=== PATIENT | female | born 1945 | race Caucasian/White ===

== ENCOUNTER 2016-11-09 17:32 | Inpatient (IN) | payer MEDICAID, OTHER ==
[~2016-11-09] VITALS: Ht 152.4 cm; Wt 83.0 kg
[~2016-11-09 17:32] MED LIST: AZIT250T89 PO; CEFD300C37 PO
[2016-11-09] MEDS ORDERED: SODIUM CHLORIDE FLUSH 10ML SYR IVF ONE (18:30)
[2016-11-09] MEDS ORDERED: SODIUM CHLORIDE 0.9% 1,000ML IVBOLUS ONE (18:30)
[2016-11-09] MEDS ORDERED: ONDANSETRON 2MG/ML, 2ML IVPush ONE (18:30)
[2016-11-09] MEDS ORDERED: ONDANSETRON 2MG/ML, 2ML ONE (18:42)
[2016-11-09 18:56] LABS: ASPARTATE AMINO TRANSFERASE 27 U/L (15-37); BLOOD UREA NITROGEN 14 mg/dL (7-18)
[2016-11-09] MEDS ORDERED: METO50TA82 PO (20:09)
[2016-11-09] MEDS ORDERED: CAPT25TA3 PO (20:09)
[2016-11-09] MEDS ORDERED: ACETAMINOPHEN 325 MG TABLET PO PRN (20:30)
[2016-11-09] MEDS ORDERED: AMPICILLIN/SULBACTAM 3 GM in SODIUM CHLORIDE 0.9% 100 ML IV ONE (20:30)
[2016-11-09] MEDS ORDERED: hydrALAzine 20 MG/ML, 1ML IVPush PRN (20:30)
[2016-11-09] MEDS ORDERED: ONDANSETRON 2MG/ML, 2ML IVPush PRN (20:30)
[2016-11-09] MEDS ORDERED: morphine SULFATE 10 MG/ML, 1ML IVPush PRN (20:30)
[2016-11-09 21:35] VITALS: BP 142/82
[2016-11-09] MEDS: SODIUM CHLORIDE 0.9% 1,000 ML IV SCH (21:45)
[2016-11-09] MEDS: METOPROLOL TARTRATE 25 MG TABLET PO SCH (21:46)
[2016-11-09] MEDS: CAPTOPRIL 25 MG TABLET PO SCH (21:46)
[2016-11-10] MEDS: AMPICILLIN/SULBACTAM 3 GM in SODIUM CHLORIDE 0.9% 100 ML IV SCH ×2 (03:07→11:08)
[2016-11-10 03:51] VITALS: BP 127/76
[2016-11-10] MEDS: SODIUM CHLORIDE 0.9% 1,000 ML IV SCH ×2 (05:31→13:45)
[2016-11-10] MEDS: METOPROLOL TARTRATE 25 MG TABLET PO SCH ×2 (05:41→17:31)
[2016-11-10 06:08] LABS: ASPARTATE AMINO TRANSFERASE 19 U/L (15-37); BLOOD UREA NITROGEN 12 mg/dL (7-18)
[2016-11-10 06:46] VITALS: BP 136/82
[2016-11-10] MEDS: CAPTOPRIL 25 MG TABLET PO SCH ×3 (09:00→21:17)
[2016-11-10] MEDS ORDERED: BUPIVACAINE/PF-EPI 0.5% 1:200K ONE (11:57)
[2016-11-10] MEDS ORDERED: GLYCOPYRROLATE 0.2MG/1ML ONE (12:36)
[2016-11-10] MEDS ORDERED: PROPOFOL 10 MG/ML, 20ML ONE (12:36)
[2016-11-10] MEDS ORDERED: ROCURONIUM 10 MG/ML ONE (12:36)
[2016-11-10] MEDS ORDERED: EPHEDRINE 50 MG/ML, 1ML ONE (12:36)
[2016-11-10] MEDS ORDERED: ONDANSETRON 2MG/ML, 2ML ONE (12:36)
[2016-11-10] MEDS ORDERED: LABETALOL 5MG/ML, 20ML ONE (12:36)
[2016-11-10] MEDS ORDERED: NEOSTIGMINE 1 MG/ML, 10ML ONE (12:36)
[2016-11-10] MEDS ORDERED: DEXAMETHASONE 4 MG/ML, 1ML ONE (12:36)
[2016-11-10] MEDS ORDERED: SUCCINYLCHOLINE 20 MG/ML, 10ML ONE (12:36)
[2016-11-10] MEDS ORDERED: FENTANYL PF 100 MCG/2ML ONE ×2 (12:38→13:38)
[2016-11-10] MEDS ORDERED: FENTANYL PF 100 MCG/2ML IV PRN (13:30)
[2016-11-10] MEDS ORDERED: ONDANSETRON 2MG/ML, 2ML IVPush PRN (13:30)
[2016-11-10] MEDS ORDERED: LABETALOL 5MG/ML, 20ML IV PRN (13:30)
[2016-11-10] MEDS ORDERED: OXYcodone 5 MG/5 ML ORAL.SOL UDC PO PRN (13:30)
[2016-11-10] MEDS ORDERED: hydrALAzine 20 MG/ML, 1ML IV PRN (13:30)
[2016-11-10] MEDS ORDERED: HYDROmorphone 1 MG/ML, 1ML IV PRN (13:30)
[2016-11-10] MEDS ORDERED: OXYcodone 5 MG/5 ML ORAL.SOL UDC ONE (14:40)
[2016-11-10] MEDS ORDERED: MORPHINE SULFATE 4 MG/ML, 1ML IVPush PRN (16:30)
[2016-11-10] MEDS: D5%-0.45NACL+KCL 20MEQ 1,000 ML IV SCH (16:51)
[2016-11-10] MEDS: CEFOTETAN PMX 2GM/50ML 50 ML IV SCH (16:51)
[2016-11-10] MEDS: DOCUSATE 100 MG CAPSULE PO PRN (17:31)
[2016-11-10 19:06] VITALS: BP 145/82
[2016-11-10 23:41] VITALS: BP 119/73
[2016-11-11] MEDS: D5%-0.45NACL+KCL 20MEQ 1,000 ML IV SCH ×2 (00:17→08:30)
[2016-11-11 04:00] VITALS: BP 144/80
[2016-11-11] MEDS: CEFOTETAN PMX 2GM/50ML 50 ML IV SCH (04:10)
[2016-11-11 05:14] LABS: BLOOD UREA NITROGEN 13 mg/dL (7-18)
[2016-11-11] MEDS: METOPROLOL TARTRATE 25 MG TABLET PO SCH (05:57)
[2016-11-11 07:25] VITALS: BP 126/70
[2016-11-11] MEDS ORDERED: ENOXAPARIN 30 MG/0.3 ML SQ SCH (09:00)
[2016-11-11] MEDS ORDERED: ENOXAPARIN 40 MG/0.4 ML SQ SCH (09:00)
[2016-11-11] MEDS: CAPTOPRIL 25 MG TABLET PO SCH (09:10)
[2016-11-11] MEDS: DOCUSATE 100 MG CAPSULE PO PRN (09:10)
[2016-11-11] MEDS ORDERED: HYDR-3241 PO (10:17)
[2016-11-11] MEDS ORDERED: AMOX1TAB64 PO (10:17)
[2016-11-11 13:14] VITALS: BP 123/71
[2016-11-12] MEDS ORDERED: CEFOTETAN PMX 2GM/50ML 50 ML IV SCH (04:00)
== END 2016-11-11 14:30 | disposition home or self-care (01) | DRG 417 ==
LOC: ED 20:12 → EDIP 20:15 → 4NOR 20:59
PROVIDERS: ADMIT Hospitalist; ATTEND Hospitalist
PROC: 0FT44ZZ Resection of Gallbladder, Percutaneous Endoscopic Approach (ICD-10-PCS; principal; 2016-11-10 12:15)
DX: K81.2 Acute cholecystitis with chronic cholecystitis (principal); E43 Unspecified severe protein-calorie malnutrition; K82.1 Hydrops of gallbladder; I12.9 Hypertensive chronic kidney disease with stage 1 through stage 4 chronic kidney disease, or unspecified chronic kidney disease; N18.3 Chronic kidney disease, stage 3 (moderate); K66.0 Peritoneal adhesions (postprocedural) (postinfection); Z68.35 Body mass index [BMI] 35.0-35.9, adult
CPT/HCPCS: 36415; 76700; 80048; 80053; 81001; 82040; 83690; 85025; 87086; 88304; 93005; 96361; 96365; 96375; C1729; J0295; J1100; J1650; J2405; J2704; J2710; J3010; J3490; J0330; J2270; J3480; J7030; S0074

== ENCOUNTER 2018-07-10 17:38 | Inpatient (IN) | payer MEDICAID, OTHER ==
[~2018-07-10] VITALS: Ht 152.4 cm; Wt 75.8 kg
[~2018-07-10 17:38] MED LIST changes: +AMOX1TAB64 PO; +CAPT25TA3 PO; +HYDR-3241 PO; +METO50TA82 PO
[2018-07-10] MEDS ORDERED: SODIUM CHLORIDE FLUSH 10ML SYR IVF ONE (18:30)
[2018-07-10 18:47] LABS: BASOPHILS # (AUTO) 0.03 x10^3/uL (0-0.1); BASOPHILS % (AUTO) 0 % (0-1); EOSINOPHILS # (AUTO) 0.04 x10^3/uL (0-0.4); EOSINOPHILS % (AUTO) 0 % (1-7); LYMPHOCYTES # (AUTO) 1.07 x10^3/uL (1-3.4); LYMPHOCYTES % (AUTO) 7 % (22-44); MD NO; MEAN CORPUSCULAR HEMOGLOBIN 28.9 pg (27.0-34.8); MEAN CORPUSCULAR HGB CONC 33.9 g/dL (32.4-35.8); MEAN CORPUSCULAR VOLUME 85.3 fL (80-100); MEAN PLATELET VOLUME 7.6 fL (7.4-10.4); MONOCYTES # (AUTO) 0.75 x10^3/uL (0.2-0.8); MONOCYTES % (AUTO) 5 % (2-9); NEUTROPHILS # (AUTO) 13.32 x10^3/uL (1.8-6.8); NEUTROPHILS % (AUTO) 88 % (42-75); PLATELET COUNT 361 x10^3/uL (130-400); RED BLOOD COUNT 4.18 x10^6/uL (3.82-5.3); RED CELL DISTRIBUTION WIDTH 13.3 % (9.6-15.2)
[2018-07-10 18:57] LABS: ALBUMIN 2.6 g/dL (3.4-5.0); ANION GAP 11 mmol/L (5-15); CALCIUM 9.5 mg/dL (8.5-10.1); CHLORIDE 108 mmol/L (98-107); CREATININE 2.01 mg/dL (0.55-1.02)
[2018-07-10] MEDS ORDERED: AZITHROMYCIN 500 MG in SODIUM CHLORIDE 0.9% 250 ML IV ONE (19:30)
[2018-07-10] MEDS ORDERED: CEFTRIAXONE PMX 1GM/50ML 50 ML ONE (19:32)
[2018-07-10] MEDS: CEFTRIAXONE PMX 1GM/50ML 50 ML IV ONE ×2 (19:35→19:59)
[2018-07-10] MEDS ORDERED: SODIUM CHLORIDE 0.9% 1,000 ML IV ONE (19:42)
[2018-07-10] MEDS ORDERED: NIFE20CA PO (19:44)
[2018-07-10] MEDS ORDERED: LOSA100T14 PO (19:44)
[2018-07-10] MEDS ORDERED: SODIUM CHLORIDE FLUSH 10ML SYR IVF PRN (20:00)
[2018-07-10] MEDS ORDERED: LIDODERM 5% PATCH TD PRN (21:00)
[2018-07-10] MEDS ORDERED: ONDANSETRON 2MG/ML, 2ML IVPush PRN (21:00)
[2018-07-10] MEDS ORDERED: DIPHENHYDRAMINE 25 MG CAPSULE PO PRN (21:00)
[2018-07-10] MEDS ORDERED: KETOROLAC 30 MG/1 ML IV PRN (21:00)
[2018-07-10] MEDS ORDERED: DOCUSATE 100 MG CAPSULE PO PRN (21:00)
[2018-07-10] MEDS ORDERED: hydrALAzine 20 MG/ML, 1ML IVPush PRN (21:00)
[2018-07-10] MEDS ORDERED: ACETAMINOPHEN 325 MG TABLET PO PRN (21:00)
[2018-07-10 21:15] VITALS: BP 110/72
[2018-07-10] MEDS: LOSARTAN 50MG TABLET PO SCH (21:30)
[2018-07-10] MEDS: SODIUM CHLORIDE 0.9% 1,000 ML IV SCH (22:03)
[2018-07-10 23:12] LABS: RAPID INFLUENZA A Negative (Negative); RAPID INFLUENZA B Negative (Negative)
[2018-07-10] MEDS ORDERED: [UNRECOGNIZED DRUG - OTHER] PO (23:33)
[2018-07-11 01:51] VITALS: BP 104/68
[2018-07-11 05:39] LABS: BASOPHILS # (AUTO) 0.24 x10^3/uL (0-0.1); BASOPHILS % (AUTO) 2 % (0-1); EOSINOPHILS % (AUTO) 1 % (1-7); LYMPHOCYTES # (AUTO) 1.47 x10^3/uL (1-3.4); LYMPHOCYTES % (AUTO) 12 % (22-44); MD NO; MEAN CORPUSCULAR HEMOGLOBIN 28.5 pg (27.0-34.8); MEAN CORPUSCULAR HGB CONC 33.5 g/dL (32.4-35.8); MEAN CORPUSCULAR VOLUME 84.9 fL (80-100); MONOCYTES # (AUTO) 0.77 x10^3/uL (0.2-0.8); MONOCYTES % (AUTO) 6 % (2-9); NEUTROPHILS # (AUTO) 9.93 x10^3/uL (1.8-6.8); NEUTROPHILS % (AUTO) 79 % (42-75); PLATELET COUNT 330 x10^3/uL (130-400); RED CELL DISTRIBUTION WIDTH 13.6 % (9.6-15.2)
[2018-07-11 05:49] LABS: ANION GAP 8 mmol/L (5-15); CHLORIDE 114 mmol/L (98-107)
[2018-07-11 05:50] LABS: CREATININE 1.68 mg/dL (0.55-1.02)
[2018-07-11] MEDS: SODIUM CHLORIDE 0.9% 1,000 ML IV SCH ×2 (06:05→17:03)
[2018-07-11 07:48] VITALS: BP 113/66
[2018-07-11] MEDS: LOSARTAN 50MG TABLET PO SCH (08:40)
[2018-07-11] MEDS: CEFTRIAXONE PMX 1GM/50ML 50 ML IV SCH ×2 (08:41→20:35)
[2018-07-11] MEDS ORDERED: ACETAMINOPHEN 325 MG TABLET PO PRN (09:00)
[2018-07-11] MEDS: HEPARIN 5,000 UNITS/ML, 1ML SQ SCH ×2 (09:46→17:03)
[2018-07-11 14:06] VITALS: BP 102/63
[2018-07-11 20:00] VITALS: BP 102/63
[2018-07-11] MEDS ORDERED: AZITHROMYCIN 500 MG in SODIUM CHLORIDE 0.9% 250 ML IV SCH (20:00)
[2018-07-11] MEDS: GUAIFENESIN/DM 200-20MG, 10ML UDC PO PRN (22:45)
[2018-07-12] MEDS: HEPARIN 5,000 UNITS/ML, 1ML SQ SCH ×3 (00:51→17:08)
[2018-07-12 02:00] VITALS: BP 110/66
[2018-07-12 05:19] LABS: BASOPHILS # (AUTO) 0.06 x10^3/uL (0-0.1); BASOPHILS % (AUTO) 1 % (0-1); EOSINOPHILS # (AUTO) 0.33 x10^3/uL (0-0.4); EOSINOPHILS % (AUTO) 4 % (1-7); LYMPHOCYTES # (AUTO) 1.44 x10^3/uL (1-3.4); LYMPHOCYTES % (AUTO) 17 % (22-44); MD NO; MEAN CORPUSCULAR HEMOGLOBIN 28.5 pg (27.0-34.8); MEAN CORPUSCULAR HGB CONC 33.8 g/dL (32.4-35.8); MEAN CORPUSCULAR VOLUME 84.6 fL (80-100); MEAN PLATELET VOLUME 7.8 fL (7.4-10.4); MONOCYTES # (AUTO) 0.57 x10^3/uL (0.2-0.8); MONOCYTES % (AUTO) 7 % (2-9); NEUTROPHILS # (AUTO) 5.95 x10^3/uL (1.8-6.8); NEUTROPHILS % (AUTO) 71 % (42-75); PLATELET COUNT 308 x10^3/uL (130-400); RED BLOOD COUNT 3.47 x10^6/uL (3.82-5.3); RED CELL DISTRIBUTION WIDTH 13.6 % (9.6-15.2)
[2018-07-12 05:27] LABS: ANION GAP 8 mmol/L (5-15); CALCIUM 8.7 mg/dL (8.5-10.1); CHLORIDE 116 mmol/L (98-107)
[2018-07-12 05:29] LABS: CREATININE 1.23 mg/dL (0.55-1.02)
[2018-07-12 06:45] VITALS: BP 121/74
[2018-07-12] MEDS: SODIUM CHLORIDE 0.9% 1,000 ML IV SCH (08:36)
[2018-07-12] MEDS: CEFTRIAXONE PMX 1GM/50ML 50 ML IV SCH ×2 (08:36→20:25)
[2018-07-12 12:53] VITALS: BP 126/73
[2018-07-12] MEDS: GUAIFENESIN/DM 200-20MG, 10ML UDC PO PRN (17:09)
[2018-07-12 20:00] VITALS: BP 116/61
[2018-07-13] MEDS: HEPARIN 5,000 UNITS/ML, 1ML SQ SCH ×2 (01:06→09:07)
[2018-07-13] MEDS: SODIUM CHLORIDE 0.9% 1,000 ML IV SCH (01:06)
[2018-07-13 02:00] VITALS: BP 103/58
[2018-07-13 06:08] LABS: % IRON SATURATION 15 % (20-55); IRON LEVEL 33 mcg/dL (50-170); TOTAL IRON BINDING CAPACITY 214 mcg/dL (250-450)
[2018-07-13 07:13] VITALS: BP 135/76
[2018-07-13] MEDS ORDERED: FERROUS SULFATE 325 MG TABLET PO SCH (08:00)
[2018-07-13] MEDS: CEFTRIAXONE PMX 1GM/50ML 50 ML IV SCH (09:07)
[2018-07-13] MEDS: GUAIFENESIN/DM 200-20MG, 10ML UDC PO PRN (09:49)
[2018-07-13] MEDS ORDERED: FERR-51 PO (10:06)
[2018-07-13] MEDS ORDERED: CEFU500T50 PO ×2 (10:06→15:13)
[2018-07-13 13:35] VITALS: BP 143/85
[2018-07-13] MEDS ORDERED: CIPR10DR EACH EAR (15:13)
[2018-07-13] MEDS ORDERED: SULF1TAB24 PO (15:48)
[2018-07-13] MEDS ORDERED: CEFUROXIME 500 MG TABLET PO SCH (21:00)
== END 2018-07-13 16:35 | disposition home or self-care (01) | DRG 871 ==
LOC: ED 19:21 → EDIP 19:42 → 4EST 20:53 → DCLOUNGE 07-13 16:07
PROVIDERS: ADMIT Internal Medicine; ATTEND Internal Medicine
DX: A41.51 Sepsis due to Escherichia coli [E. coli] (principal); J18.1 Lobar pneumonia, unspecified organism; N17.0 Acute kidney failure with tubular necrosis; H70.012 Subperiosteal abscess of mastoid, left ear; J32.9 Chronic sinusitis, unspecified; D50.9 Iron deficiency anemia, unspecified; I12.9 Hypertensive chronic kidney disease with stage 1 through stage 4 chronic kidney disease, or unspecified chronic kidney disease; N18.3 Chronic kidney disease, stage 3 (moderate); E66.9 Obesity, unspecified; H92.02 Otalgia, left ear; R09.02 Hypoxemia; E86.0 Dehydration; B96.89 Other specified bacterial agents as the cause of diseases classified elsewhere; B95.3 Streptococcus pneumoniae as the cause of diseases classified elsewhere; Z90.49 Acquired absence of other specified parts of digestive tract; Z79.899 Other long term (current) drug therapy
CPT/HCPCS: 36415; 70450; 71045; 80048; 82040; 83540; 83550; 83605; 85025; 87040; 87070; 87077; 87184; 87186; 87205; 87400; 96365; 96368; G0378; J0456; J0696; J1644; J7030; J7050